=== PATIENT | male | born 1960 | race Caucasian/White ===

== ENCOUNTER 2020-05-10 08:58 | Emergency (ER) | payer BC, SELFPAY ==
[2020-05-10 08:58] VITALS: BP 200/127; PULSE 102; RESP 17; TEMP 36.2; O2SAT 95; BMI 24.4
--- NOTE | 2020-05-10 09:09 | ED.DCSUM_ITS ---
- ER Visit Summary Date of Service: 05/10/20 Chief Complaint: High blood pressure History of Present Illness: The patient is a 59 M presenting with elevated blood pressure. Patient was at the eye doctor yesterday for prescreening for his cataract surgery. He states they took his blood pressure and noted that it was high. He does not currently have a primary care physician. He has not seen a doctor in over 10 years. He complains of mild headache which has been intermittent for over a month. This is not the worst headache of his life. Denies chest pain or shortness of breath. Denies other complaints. Physical Examination: Blood pressure 200/127. Patient is afebrile. Alert no acute distress. HEENT exam is unremarkable. Neck is supple. Lungs are clear and equal bilaterally. Heart is regular rate and rhythm. Abdomen is soft nontender nondistended. Extremities are unremarkable. Skin is warm and dry. No focal neurologic deficit. Remainder of exam is unremarkable. Emergency Department Course and Treatment: Patient was given clonidine. Basic metabolic panel is unremarkable. On reevaluation his blood pressure continues to be elevated and he was given additional dose of clonidine. After observation his repeat blood pressure is 164/110. He remains asymptomatic. He was given prescription for amlodipine/Benzapril. He was given Dr. Arthur bill recapitulation clerk for no doc for follow-up. He was advised importance of follow-up with primary care physician to establish care and to have blood pressure rechecked. Patient understands. Advised return to ED for worsening complaints. Disposition: Discharge home Impression: Hypertension This note was generated with [employer] dictation software. It may contain incorrect words, spelling, and punctuation that were not noted in review of the chart prior to signing ED Disposition - Plan for ED Patient: Instructions: ED Hypertension, New (Begin Treatment) Prescriptions: Amlodipine Besylate/Benazepril [Amlodipine-Benazepril 5-10 mg] 1 ea PO DAILY #30 cap Prescription Printed Referrals: Kanu Arthur MD [NON-STAFF] -
[2020-05-10 09:28] VITALS: BP 222/128; PULSE 93; RESP 18; O2SAT 94
[2020-05-10] MEDS: cloNIDine HCl 0.1 MG Tablet 0.2 MG PO ×2 (09:31→10:26)
[2020-05-10 09:43] LABS: Anion Gap 7 (5-15); BUN 10 mg/dL (7-18); BUN/Creat Ratio 9.7 RATIO (10-20); Chloride 103 mmol/L (98-107); Creatinine, Serum 1.03 mg/dL (0.70-1.30); EST Glomerular Filtration Rate 78 mL/min (>60); Est Glom Filt Rate - Afr Amer 95 mL/min (>60); Estimated Creatinine Clearance 82.25 ml/min; Glucose 156 mg/dL (74-106); Potassium 3.6 mmol/L (3.5-5.1); Sodium Level 138 mmol/L (136-145)
[2020-05-10 10:26] VITALS: BP 196/124; PULSE 95; RESP 16; O2SAT 93
[2020-05-10 11:04] VITALS: BP 165/114
--- NOTE | 2020-05-10 11:07 | ED.DEP ---
ED Disposition - Plan for ED Patient: Instructions: ED Hypertension, New (Begin Treatment) Prescriptions: Amlodipine Besylate/Benazepril [Amlodipine-Benazepril 5-10 mg] 1 ea PO DAILY #30 cap Prescription Printed Referrals: Kanu Arthur MD [NON-STAFF] -
[2020-05-10 11:20] VITALS: BP 165/114; PULSE 88; RESP 16
--- NOTE | 2020-05-10 11:22 | ED.RN ---
IV DC'ED, CATHETER INTACT, SMALL GAUZE DRESSING PLACED. DISCHARGE INSTRUCTIONS GIVEN TO AND REVIEWED WITH PATIENT, PATIENT DENIES QUESTIONS OR CONCERNS AND VOICES UNDERSTANDING OF DISCHARGE INSTRUCTIONS. PT AMBULATES OUT OF ROOM WITHOUT DIFFICULTY.
== END 2020-05-10 11:22 | disposition home or self-care (01) ==
LOC: ED 09:55
PROVIDERS: Emergency Provider Emergency Medicine
DX: I10 Essential (primary) hypertension (principal); R51.9 Headache, unspecified
CPT/HCPCS: 80048; 99285; A4216